=== PATIENT | female | born 1955 | race Caucasian/White ===

== ENCOUNTER 2017-09-05 12:13 | Emergency (ER) | payer SELFPAY ==
[~2017-09-05 12:13] MED LIST: HYDR-3580 PO; XANA2TAB2 PO; ZOLP10TA3 PO
[2017-09-05 12:17] VITALS: BP 185/95; PULSE 88; RESP 20; TEMP 98; O2SAT 99
[2017-09-05] MEDS ORDERED: ACETAMINOPHEN/HYDROcodone 325 MG/5 MG TAB PO ONE (14:00)
--- NOTE | 2017-09-05 14:32 | PD ---
HPI Chief Complaint: Injury Time Seen by Provider: 13:38 Travel History International Travel<30 days: No Contact w/Intl Traveler<30days: No Traveled to known affect area: No History of Present Illness HPI 61-year-old female that presents to the ED for evaluation of right shoulder pain. Patient states that the pain started 4 days ago with no injury. Per patient he does get worse with certain range of motion especially with abduction of the shoulder. She states that she has a history of rotator cuff surgery to that shoulder years ago. She has not had any issues until today. She states that she takes hydrocodone for her pain daily and has helped a little bit. She also put up pain patch on her shoulder with some improvement of her pain. Per patient she is concerned mainly because she does have a history of blood clots and has had PEs and she is concerned that this could be related to that. She does takes Xarelto daily. She has not missed a dose. Per patient her pain is 7 out of 10. All the pain appears to be more on the lateral aspect of the arm. Per patient he gets worse with movement. She denies any overuse or injury or heavy lifting. She is right-handed. No chest pain or shortness of breath. Pain does not radiate. PFSH Past Medical History Hx Anticoagulant Therapy: Yes Anxiety: Yes Cardiovascular Problems: Yes Diminished Hearing: No Hypertension: Yes Insomnia: Yes Para: 2 Past Surgical History Gynecologic Surgery: Yes (removal of an ovarian cyst breech childbirth) Other Surgery: Yes Social History Alcohol Use: Yes (EVENING COCKTAILS) Tobacco Use: No Substance Use: No Allergies-Medications (Allergen,Severity, Reaction): Coded Allergies: gluten (Unverified Allergy, Severe, red rash, 09/05/17) pseudoephedrine (Unverified Allergy, Severe, shortness of breath and dizziness, 09/05/17) any drug containing phenyl hydrocodone (Verified Adverse Reaction, Intermediate, Nausea/Vomiting, 02/12) tramadol (Unverified Adverse Reaction, Intermediate, NAUSE AND VOMITING , 09/05/17) Uncoded Allergies: ANY DRUG WITH PHENYL IN IT (Allergy, Intermediate, 10/29/09) Reported Meds & Prescriptions Reported Meds & Active Scripts Active Reported Ambien 10 Mg Tab (Zolpidem Tartrate) 10 Mg Tab 10 Mg PO HS PRN Alprazolam 2 Mg Tab 2 Mg PO Q12 PRN Hydrocodone/Acetaminophen 7.5 mg/325 mg 7.5 Mg/325 Mg Tab 1 Tab PO BID Review of Systems Except as stated in HPI: all other systems reviewed are Neg Physical Exam Narrative GENERAL: SKIN: Warm and dry. HEAD: Atraumatic. Normocephalic. EYES: Pupils equal and round. No scleral icterus. No injection or drainage. ENT: No nasal bleeding or discharge. Mucous membranes pink and moist. Tongue is midline. No uvula deviation. NECK: Trachea midline. No JVD. CARDIOVASCULAR: Regular rate and rhythm. No murmurs, S3, S4. RESPIRATORY: No accessory muscle use. Clear to auscultation. Breath sounds equal bilaterally. GASTROINTESTINAL: Abdomen soft, non-tender, nondistended. Hepatic and splenic margins not palpable. MUSCULOSKELETAL: Extremities without clubbing, cyanosis, or edema. No obvious deformities. Full range of motion of the upper and lower extremities bilaterally. Patient does have pain reproducible with touch in the musculature on the right deltoid and biceps area. Pain with abduction as well. 2+ pulses bilaterally. Sensation intact bilaterally. No lumbar, thoracic and cervical spine tenderness to palpation. NEUROLOGICAL: Awake and alert. No obvious cranial nerve deficits. Motor grossly within normal limits. Five out of 5 muscle strength in the arms and legs. Normal speech. PSYCHIATRIC: Appropriate mood and affect; insight and judgment normal. Data Data Last Documented VS Vital Signs Date Time Temp Pulse Resp B/P (MAP) Pulse Ox O2 Delivery O2 Flow Rate FiO2 09/05/17 12:17 98.0 88 20 185/95 (125) 99 Orders Orders Acetamin-Hydrocod 325-5 Mg ([place] 5-325 (09/05/17 14:00) Humerus (Min 2vws) (09/05/17 ) Us Arm Venous Doppler (09/05/17 ) [facility] Medical Decision Making Medical Screen Exam Complete: Yes Emergency Medical Condition: Yes Medical Record Reviewed: Yes Interpretation(s) Last Impressions Upper Extremity Ultrasound 09/05/17 0000 Signed Impressions: CONCLUSION: 1. The study is negative for upper extremity deep venous thrombosis. Humerus X-Ray 09/05/17 0000 Signed Impressions: CONCLUSION: Negative examination Differential Diagnosis Fracture versus sprain versus strain versus muscle strain versus tendinitis versus DVT Narrative Course 61-year-old female that presents to the ED for evaluation of pain to her right shoulder with no injury. Patient was properly examined and was found to have signs and symptoms consistent appears to be more muscle strain. Likely from the deltoid. Possibly from injury or overuse. Imaging and ultrasound were order as patient does have a history of DVTs. Although it is less likely I cannot completely excluded as patient denies any injury to the shoulder. Imaging showed no sign of acute disease. Likely this is muscle strain. Will treat with anti-inflammatories patient only takes Lortab at home. Follow with orthopedic doctor as needed. Told to follow-up closely with PCP. See ED if worsening symptoms. Diagnosis Primary Impression: Right shoulder strain Qualified Codes: S46.911A - Strain of unspecified muscle, fascia and tendon at shoulder and upper arm level, right arm, initial encounter Patient Instructions: General Instructions, Narcotic given in the ED Additional Instructions: Take medications as prescribed. Follow-up with PCP. See ED for any worsening symptoms. Do not drink or drive while taking pain medication. Apply ice or heat as needed for pain Med/Other Pt SpecificInfo: Prescription(s) given Disposition: 01 DISCHARGE HOME Condition: Stable Ankur Srinivasan Sep 05, 2017 14:32
--- NOTE | 2017-09-05 15:00 | RADRPT ---
EXAM DATE: 09/05/2017 2:09 PM EDT AGE/SEX: 61 years / Female INDICATIONS: Right humerus pain, no known trauma CLINICAL DATA: This is the patient's initial encounter. Patient reports that signs and symptoms have been present for 4 - 6 days and indicates a pain score of 8/10. MEDICAL/SURGICAL HISTORY: . Fibromyalgia., osteoarthritis None. COMPARISON: No prior exams available for comparison. FINDINGS: Bony structures are intact and in normal alignment. Osseous density is normal. Soft tissues are unre markable. No radiopaque foreign bodies seen. CONCLUSION: Negative examination Electronically signed by: Phan Babin MD 09/05/2017 2:59 PM EDT
--- NOTE | 2017-09-05 15:02 | RADRPT ---
EXAM DATE: 09/05/2017 2:55 PM EDT AGE/SEX: 61 years / Female INDICATIONS: Right arm pain. CLINICAL DATA: This is the patient's initial encounter. Patient reports that signs and symptoms have been present for 4 - 6 days and indicates a pain score of 7/10. MEDICAL/SURGICAL HISTORY: . Hypertension. DVT. PE. None. COMPARISON: No prior exams available for comparison. FINDINGS: There is spontaneous flow documented in the brachial, basilic, cephalic, axillary, and subclavian vei ns. The vessels are compressible and augmentation response is documented. No filling defects are se en. The flow is phasic with respiration. Direction of flow in the jugular vein is caudal. CONCLUSION: 1. The study is negative for upper extremity deep venous thrombosis. Electronically signed by: Phan Babin MD 09/05/2017 3:00 PM EDT
[2017-09-05] MEDS ORDERED: DICL75TA PO (15:15)
== END 2017-09-05 15:46 | disposition home or self-care (01) ==
LOC: NEPK 12:13
DX: S46.911A Strain of unspecified muscle, fascia and tendon at shoulder and upper arm level, right arm, initial encounter (principal); F41.9 Anxiety disorder, unspecified; M79.601 Pain in right arm; X58.XXXA Exposure to other specified factors, initial encounter; Z79.01 Long term (current) use of anticoagulants; Z86.718 Personal history of other venous thrombosis and embolism
CPT/HCPCS: 73060; 93971; 99284; L3908